=== PATIENT | male | born 1985 | race Caucasian/White ===

== ENCOUNTER 2021-06-18 21:48 | Emergency (ER) | payer OTHER ==
[2021-06-18] MEDS ORDERED: DELSYM30 MG/5 ML PO (22:26)
[2021-06-18] MEDS ORDERED: IBUPROFEN600 MG PO (22:26)
[2021-06-18] MEDS ORDERED: FLONASE 0.05% N16 GM (22:26)
== END 2021-06-18 22:30 | disposition home or self-care (01) ==
LOC: ER1 21:48
DX: U07.1 COVID-19 (principal)
CPT/HCPCS: 99284; U0003

== ENCOUNTER 2021-06-20 12:14 | Emergency (ER) | payer OTHER ==
[~2021-06-20 12:14] MED LIST: DELSYM30 MG/5 ML PO; FLONASE 0.05% N16 GM; IBUPROFEN600 MG PO
== END 2021-06-20 12:55 | disposition home or self-care (01) ==
LOC: ER1 12:14
DX: U07.1 COVID-19 (principal); F17.290 Nicotine dependence, other tobacco product, uncomplicated
CPT/HCPCS: 99283